=== PATIENT | male | born 2000 | race Caucasian/White ===

== ENCOUNTER 2024-02-18 22:40 | Emergency (ER) | payer OTHER ==
[2024-02-19] MEDS ORDERED: Iopamidol 755 MG/ML 500 ML Multipack Bottle IVPUSH ONE (02:14)
== END 2024-02-19 02:39 | disposition home or self-care (01) ==
LOC: MW.ED 22:40
DX: S06.9X9A Unspecified intracranial injury with loss of consciousness of unspecified duration, initial encounter (principal); Z79.899 Other long term (current) drug therapy; V29.99XA Rider (driver) (passenger) of other motorcycle injured in unspecified traffic accident, initial encounter; Y93.55 Activity, bike riding
CPT/HCPCS: 70450; 70450-26; 99284

== ENCOUNTER 2025-05-06 13:05 | Emergency (ER) | payer BC, OTHER ==
[2025-05-06] MEDS: Diphtheria,Pertussis(Acell),Tetanus Vaccine 0.5 ML Syringe IM ONE (14:23)
[2025-05-06] MEDS: Lactated Ringers 1,000 ML IV ONE (14:23)
== END 2025-05-06 14:33 | disposition home or self-care (01) ==
LOC: MW.ED 13:05
DX: T22.211A Burn of second degree of right forearm, initial encounter (principal); T20.10XA Burn of first degree of head, face, and neck, unspecified site, initial encounter; Z79.899 Other long term (current) drug therapy; Z90.49 Acquired absence of other specified parts of digestive tract; X00.0XXA Exposure to flames in uncontrolled fire in building or structure, initial encounter
CPT/HCPCS: 90471; 90715; 96361; 96374; 99283; A9270; J1171; J7120; 99284